=== PATIENT | male | born 1970 | race Caucasian/White ===

== ENCOUNTER 2018-05-19 22:29 | Emergency (ER) | payer MEDICARE, MEDICAID ==
[~2018-05-19] VITALS: Ht 167.6 cm; Wt 72.9 kg
[2018-05-19] MEDS ORDERED: haloperidol 5mg tablet PO STA (22:48)
[2018-05-19] MEDS ORDERED: benztropine 1mg tablet PO STA (22:48)
[2018-05-19 22:55] LABS: BASOPHILS # (AUTO) 0.1 X10'3 (0-0.2); BASOPHILS % (AUTO) 0.7 % (0-1); EOSINOPHILS # (AUTO) 0.3 X10'3 (0-0.9); EOSINOPHILS % (AUTO) 2.1 % (0-6); HEMATOCRIT 45.9 % (42.0-52.0); HEMOGLOBIN 15.9 g/dl (14.0-17.9); LYMPHOCYTES # (AUTO) 2.9 X10'3 (1.1-4.8); LYMPHOCYTES % (AUTO) 22.5 % (21-51); MEAN CORPUSCULAR HEMOGLOBIN 27.8 PG (27.0-31.0); MEAN CORPUSCULAR HGB CONC 34.6 % (33.0-36.5); MEAN CORPUSCULAR VOLUME 80.4 FL (78-98); MEAN PLATELET VOLUME 7.3 FL (7.4-10.4); MONOCYTES # (AUTO) 0.9 X10'3 (0-0.9); NEUTROPHILS # (AUTO) 8.9 X10'3 (1.8-7.7); NEUTROPHILS % (AUTO) 67.7 % (42-75); PLATELET COUNT 272 X10'3 (140-440); RED BLOOD COUNT 5.71 X10'6 (4.70-6.10); RED CELL DISTRIBUTION WIDTH 14.3 % (11.5-14.5); WHITE BLOOD COUNT 13.1 X10'3 (4.5-11.0)
[2018-05-19 23:00] LABS: CLARITY,URINE CLEAR (Clear); COLOR,URINE AMBER (Yellow); GLUCOSE, URINE NEGATIVE (Neg); KETONES,URINE NEGATIVE (Neg); LEUKOCYTE ESTERASE ,URINE NEGATIVE (Neg); NITRITES, URINE NEGATIVE (Neg); OCCULT BLOOD,URINE NEGATIVE (Neg); PH,URINE 5.5 (4.8-8.0); PROTEIN,URINE 30 mg/dl (Neg)
[2018-05-19 23:03] LABS: UA COLLECTION TYPE CLN CATCH MIDSTREAM
[2018-05-19 23:07] LABS: BACTERIA,URINE NONE SEEN /HPF (Neg); CAL OXALATE CRYSTALS 1+ /HPF (NEGATIVE); MUCUS STRANDS MANY /LPF (Neg); RBC,URINE NONE SEEN /HPF (0-2); SQUAMOUS EPITHELIAL CELL,UR FEW /LPF (FEW); WBC,URINE 0-4 /HPF (0-4)
[2018-05-19 23:12] LABS: URINE AMPHETAMINE SCREEN POSITIVE (Neg); URINE BARBITUATE SCREEN NEGATIVE (Neg); URINE BENZODIAZEPINES SCREEN NEGATIVE (Neg); URINE CANNABINOID SCREEN POSITIVE (Neg); URINE COCAINE SCREEN NEGATIVE (Neg); URINE METHADONE SCREEN NEGATIVE (Neg); URINE OPIATE SCREEN NEGATIVE (Neg); URINE PHENCYCLIDINE SCREEN NEGATIVE (Neg)
[2018-05-19 23:13] LABS: ALANINE AMINOTRANSFERASE 29 U/L (12-78); ALKALINE PHOSPHATASE 74 IU/L (46-116); ANION GAP 12 (8-16); ASPARTATE AMINO TRANSFERASE 28 U/L (10-37); BILIRUBIN,TOTAL 0.9 MG/DL (0.1-1.0); BLOOD UREA NITROGEN 23 MG/DL (7-18); BUN/CREATININE RATIO 16.8 (5.4-32.0); CALCIUM 8.9 MG/DL (8.5-10.1); CHLORIDE 101 MMOL/L (99-107); CREATININE 1.37 MG/DL (0.60-1.10); GLUCOSE 115 MG/DL (70-104); POTASSIUM 3.6 MMOL/L (3.5-5.1); SODIUM 135 MMOL/L (135-145); TOTAL CARBON DIOXIDE 22.1 MMOL/L (24-32); TOTAL PROTEIN 7.9 G/DL (6.4-8.2); eGFR 55 ML/MIN
[2018-05-19 23:20] LABS: ETHANOL < 0.010 GM/DL (0.0-0.010)
[2018-05-19 23:32] LABS: ACETAMINOPHEN < 2.0 UG/ML (10-30)
[2018-05-20] MEDS: benztropine 1mg tablet PO SCH ×2 (08:00→20:17)
[2018-05-20] MEDS ORDERED: haloperidol 5mg tablet PO ONE (08:00)
[2018-05-20] MEDS: traZODone 50mg tablet PO SCH (20:17)
[2018-05-21] MEDS ORDERED: haloperidol 5mg tablet PO ONE ×2 (09:10→20:00)
[2018-05-21] MEDS: benztropine 1mg tablet PO SCH ×2 (09:50→20:11)
[2018-05-21 20:09] VITALS: BP 96/56
[2018-05-21] MEDS: traZODone 50mg tablet PO SCH (20:11)
[2018-05-21] MEDS ORDERED: TRAZ-143 PO (22:57)
[2018-05-21] MEDS ORDERED: BENZ0.5T43 PO (22:57)
[2018-05-21] MEDS ORDERED: HALO5TAB PO (22:57)
== END 2018-05-21 21:40 | disposition home or self-care (01) ==
LOC: ER 22:30
DX: R45.851 Suicidal ideations (principal); F15.90 Other stimulant use, unspecified, uncomplicated; Z59.0 Homelessness; Z56.0 Unemployment, unspecified
CPT/HCPCS: 36415; 80053; 80305; 80320; 80329; 81001; 84443; 85025; 99284

== ENCOUNTER 2018-05-21 20:55 | Inpatient (IN) | payer MEDICARE, MEDICAID ==
[~2018-05-21] VITALS: Ht 167.6 cm; Wt 73.6 kg
[2018-05-21 21:50] VITALS: BP_SYST 105; BP_DIAS 6; BP_DIAS 63
[2018-05-21] MEDS ORDERED: mag hydrox/Alum hydrox/simeth 30ml oral suspension PO PRN (22:30)
[2018-05-21] MEDS ORDERED: magnesium hydroxide 30ml (MOM) UD suspension PO PRN (22:30)
[2018-05-21] MEDS ORDERED: acetaminophen 325mg tablet PO PRN ×2 (22:30)
[2018-05-21] MEDS ORDERED: TRAZ-143 PO (22:57)
[2018-05-21] MEDS ORDERED: HALO5TAB PO (22:57)
[2018-05-21] MEDS ORDERED: BENZ0.5T43 PO (22:57)
[2018-05-22 08:00] VITALS: BP 91/65
[2018-05-22 08:26] LABS: CHOL/HDL RATIO 3.3 (0.00-4.99); CHOLESTEROL 130 MG/DL (0-200); HDL CHOLESTEROL 39 MG/DL (35-60); LDL CHOLESTEROL 80 MG/DL (50-100); TRIGLYCERIDES 70 MG/DL (20-135)
[2018-05-22] MEDS ORDERED: nicotine 21mg patch - 24 hr TD ONE (10:15)
[2018-05-22] MEDS: haloperidol 1mg tablet PO SCH (12:30)
[2018-05-22] MEDS ORDERED: haloperidol decanoate***LONG-ACTING*** 100mg/ml **IM only** inj. IM ONE (14:45)
[2018-05-22 20:00] VITALS: BP 100/60
[2018-05-22] MEDS: nicotine prolacrilex 2mg gum BC PRN (20:19)
[2018-05-22] MEDS: benztropine 1mg tablet PO SCH (20:20)
[2018-05-22] MEDS: traZODone 50mg tablet PO SCH (20:20)
[2018-05-23] MEDS ORDERED: haloperidol 1mg tablet PO SCH (07:30)
[2018-05-23 08:00] VITALS: BP 102/65
[2018-05-23] MEDS: benztropine 1mg tablet PO SCH ×2 (08:16→20:47)
[2018-05-23] MEDS: haloperidol 1mg tablet PO SCH ×2 (08:16→12:50)
[2018-05-23] MEDS: nicotine 21mg patch - 24 hr TD SCH (08:18)
[2018-05-23] MEDS: nicotine prolacrilex 2mg gum BC PRN ×2 (15:18→20:25)
[2018-05-23 20:00] VITALS: BP 106/71
[2018-05-23] MEDS: traZODone 50mg tablet PO SCH (20:47)
[2018-05-24] MEDS: haloperidol 1mg tablet PO SCH ×2 (07:52→12:57)
[2018-05-24] MEDS: benztropine 1mg tablet PO SCH ×2 (07:52→20:55)
[2018-05-24] MEDS: nicotine 21mg patch - 24 hr TD SCH (07:52)
[2018-05-24 08:00] VITALS: BP 102/62
[2018-05-24] MEDS: nicotine prolacrilex 2mg gum BC PRN (16:44)
[2018-05-24 20:00] VITALS: BP 118/77
[2018-05-24] MEDS: traZODone 50mg tablet PO SCH (20:55)
[2018-05-25 08:00] VITALS: BP 107/68
[2018-05-25] MEDS: benztropine 1mg tablet PO SCH ×2 (08:15→21:15)
[2018-05-25] MEDS: haloperidol 1mg tablet PO SCH ×2 (08:15→12:48)
[2018-05-25] MEDS: nicotine 21mg patch - 24 hr TD SCH (08:16)
[2018-05-25] MEDS: nicotine prolacrilex 2mg gum BC PRN (16:11)
[2018-05-25 20:09] VITALS: BP 98/65
[2018-05-25] MEDS: traZODone 50mg tablet PO SCH (21:16)
[2018-05-26] MEDS: nicotine 21mg patch - 24 hr TD SCH (07:37)
[2018-05-26] MEDS: haloperidol 1mg tablet PO SCH (07:37)
[2018-05-26] MEDS: benztropine 1mg tablet PO SCH (07:37)
[2018-05-26] MEDS ORDERED: HALO100A3 IM ×3 (09:11→10:21)
[2018-05-26] MEDS ORDERED: BENZ1TAB7 PO ×2 (09:11→10:13)
[2018-05-26] MEDS ORDERED: TRAZ-146 PO (09:12)
[2018-05-26] MEDS ORDERED: haloperidol decanoate***LONG-ACTING*** 100mg/ml **IM only** inj. IM ONE (10:00)
[2018-05-26] MEDS ORDERED: HALO1TAB PO (10:23)
== END 2018-05-26 10:50 | disposition home or self-care (01) | DRG 885 ==
LOC: ADULT MH 20:55
PROVIDERS: ADMIT Psychiatry & Neurology Psychiatry; ATTEND Psychiatry & Neurology Psychiatry
DX: F20.0 Paranoid schizophrenia (principal); R45.851 Suicidal ideations; F15.10 Other stimulant abuse, uncomplicated; E86.0 Dehydration; F41.9 Anxiety disorder, unspecified; F12.90 Cannabis use, unspecified, uncomplicated; F45.8 Other somatoform disorders; F17.290 Nicotine dependence, other tobacco product, uncomplicated; Z56.0 Unemployment, unspecified; Z59.0 Homelessness; Z79.899 Other long term (current) drug therapy; Z82.49 Family history of ischemic heart disease and other diseases of the circulatory system; Z80.9 Family history of malignant neoplasm, unspecified
CPT/HCPCS: 36415; 80061; 83036; 87070; 99285